=== PATIENT | female | born 1940 | race Caucasian/White ===

== ENCOUNTER 2017-04-11 05:53 | Day surgery (SDC) | payer OTHER ==
[~2017-04-11] VITALS: Ht 152.4 cm; Wt 68.0 kg
[2017-04-11] VITALS (12 sets, daily range): BP systolic 112–144; BP diastolic 55–62; PULSE 61–83; RESP 18–20; TEMP 97.5–98.2; O2SAT 95–100
[~2017-04-11 05:53] MED LIST: FLUTICASONE; GLUCTAB OR; GLYB1TAB51 PO; LATA0.00 OP; LEVO125T3 PO; LOSARTAN/HCTZ; METO10TA PO; PIOG15 PO; SIMV40TA OR
[2017-04-11] MEDS ORDERED: IODIXANOL 320 MG/ML 50 ML VIAL (for Cath Lab) OTHER ONE (05:54)
[2017-04-11] MEDS ORDERED: PROPOFOL 200 MG/20 ML AMP OTHER ONE (05:54)
[2017-04-11] MEDS ORDERED: CHLORHEXIDINE GLUCONATE 2 % 1 PACK (2 CLOTHS) TOPICAL SCH (06:15)
[2017-04-11] MEDS ORDERED: MUPIROCIN 2% OINT 1 APPLIC/GM SYR NASAL SCH (06:15)
[2017-04-11] MEDS ORDERED: NO Heparin, Lovenox, Coumadin at least 12 hours prior to procedure. PRN (06:15)
[2017-04-11] MEDS ORDERED: Hold AM Insulin & AM Hypoglycemic medications in diabetic patients PRN (06:15)
[2017-04-11] MEDS ORDERED: ceFAZolin 2 GM PREMIX 50 ML IV SCH (06:15)
[2017-04-11] MEDS ORDERED: POVIDONE IODINE 5% (ANTISEPSIS KIT) 4 APPLICATIONS EACH NARE SCH (06:15)
[2017-04-11] MEDS: NS 1000 ML IV SCH (06:15)
[2017-04-11] MEDS ORDERED: NOVOLOGP2 SQ (06:20)
[2017-04-11] MEDS ORDERED: FLUT50SP EACH NARE (06:20)
[2017-04-11] MEDS ORDERED: LATA0.002 EACH EYE (06:20)
[2017-04-11] MEDS ORDERED: ECASA81 PO (06:20)
[2017-04-11] MEDS ORDERED: SODI325T PO (06:20)
[2017-04-11] MEDS ORDERED: CARV6.252 PO (06:20)
[2017-04-11] MEDS ORDERED: ALLO100T PO (06:20)
[2017-04-11] MEDS ORDERED: LEVO125T4 PO (06:20)
[2017-04-11] MEDS ORDERED: FURO40TA PO (06:20)
[2017-04-11] MEDS ORDERED: SIMV40TA PO (06:20)
[2017-04-11] MEDS ORDERED: LANTINJ SQ (06:20)
[2017-04-11] MEDS ORDERED: METOPROLOL TARTRATE 25 MG TAB PO PRN (06:30)
[2017-04-11] MEDS ORDERED: SODIUM CHLORID 0.9% 500 ML IV PRN (06:30)
[2017-04-11] MEDS ORDERED: VANCOMYCIN 1000 MG/NS 250 ML IV SCH ×2 (06:30)
[2017-04-11] MEDS ORDERED: INSULIN HUMAN REGULAR 1,000 UNITS/10 ML VIAL SQ PRN (06:30)
[2017-04-11] MEDS ORDERED: LACTATED RINGER'S 1000 ML IV PRN (06:30)
[2017-04-11] MEDS ORDERED: CHLORHEXIDINE GLUCONATE 2 % 1 PACK (2 CLOTHS) TOPICAL PRN (06:30)
[2017-04-11] MEDS ORDERED: POVIDONE IODINE 5% (ANTISEPSIS KIT) 4 APPLICATIONS EACH NARE PRN (06:30)
[2017-04-11 06:51] LABS: AUTOMATED NEUTROPHIL # 4.8 TH/MM3 (1.8-7.7); BASOPHIL % 0.4 % (0.0-2.0); EOSINOPHIL # 0.2 TH/MM3 (0-0.4); EOSINOPHIL % 1.9 % (0.0-4.0); HEMATOCRIT 36.5 % (35.0-46.0); HEMOGLOBIN 12.5 GM/DL (11.6-15.3); LYMPH % 37.5 % (9.0-44.0); LYMPHOCYTE # 3.4 TH/MM3 (1.0-4.8); MEAN CELL VOLUME 85.8 FL (80.0-100.0); MEAN CORPUSCULAR HEMOGLOBIN 29.4 PG (27.0-34.0); MEAN CORPUSCULAR HGB CONC 34.2 % (32.0-36.0); MEAN PLATELET VOLUME 8.7 FL (7.0-11.0); MONO % 7.6 % (0.0-8.0); MONOCYTE # 0.7 TH/MM3 (0-0.9); NEUT % 52.6 % (16.0-70.0); PLATELET COUNT 268 TH/MM3 (150-450); RED BLOOD COUNT 4.25 MIL/MM3 (4.00-5.30); RED CELL DISTRIBUTION WIDTH 14.6 % (11.6-17.2); WHITE BLOOD COUNT 9.1 TH/MM3 (4.0-11.0)
[2017-04-11 07:01] LABS: PROTHROMBIN TIME - PATIENT 10.3 SEC (9.8-11.6)
[2017-04-11] MEDS ORDERED: ISOPROTERENOL HCL 1 MG/5 ML AMP ONE (07:19)
[2017-04-11] MEDS ORDERED: SODIUM CHLOR 0.9% 250 ML INJ 0 ML ONE (07:19)
[2017-04-11] MEDS ORDERED: PROPOFOL 200 MG/20 ML AMP ONE ×2 (07:19→09:51)
[2017-04-11] MEDS ORDERED: MIDAZOLAM HCL 2 MG/2 ML VIAL ONE (07:19)
[2017-04-11 07:22] LABS: BICARBONATE 22.3 MEQ/L (21.0-32.0); CALCIUM 9.3 MG/DL (8.5-10.1); CREATININE 1.18 MG/DL (0.50-1.00)
[2017-04-11] MEDS ORDERED: LIDOCAINE HCL 2% 50 ML VIAL ONE (08:04)
[2017-04-11] MEDS ORDERED: VANCOMYCIN 500 MG VIAL ONE (08:04)
[2017-04-11] MEDS ORDERED: HEPARIN-NS/PF INJ 1,000 ML ONE (08:04)
--- NOTE | 2017-04-11 09:26 | CATHPROC ---
[facility] HIS Report Study Information Study Number Admission Scheduled Start Study Start [id number] Apr 11 2017 5:53AM 04/11/2017 Apr 11 2017 7:27AM [place] [facility] Cardiac Pacer/ICD Admit Source Facility Department Other [facility] - [facility] Physician and Clinical Staff Initial Lauren Morales Car Rental Sales Assistant Vanessa Lee,MALLORY Car Rental Sales Assistant Freedom Licona,RT(R) Car Rental Sales Assistant Lucy Foster,BRAZER CRAWLER TORCH Other Anesthesia, PAYROLL SERVICES ANALYST Recorder Vanessa Lee,MALLORY Recorder Cherry White,RT(R) TECH2 Scrub Lucy Foster,BRAZER CRAWLER TORCH Scrub Freedom Licona,RT(R) Equipment Time Engineering Teacher Description Size Mfg Part Number Used/Scraped [id number] 07:30 MEDLINE INDUSTRIES PACK, CCL CUSTOM * Used *[id number] 07:30 Tran[employer] PACER RUBIO, LIMB * 2530 *[id number] Used [id number] 07:30 [facility] BLANKET,WARM AIR CCL * Used *[id number] 07:32 [employer] MEDICAL CATHETER, JSN, QUAD FR 5 Used *[id number] 07:32 [employer] MEDICAL CATHETER, JSN, QUAD FR 5 Used *[id number] 07:32 [employer] MEDICAL CATHETER, JSN, QUAD FR 5 Used *[id number] 07:32 [employer] MEDICAL CATHETER, JSN, QUAD FR 5 Used *[id number] 09:10 [employer] MEDICAL CATHETER, JSN, QUAD FR 5 Used *[id number] 110039 07:32 [employer] MEDICAL SHEATH, EPS, FR5 FAST CATH FR 5 Used *[id number] [id number] 07:32 [employer] MED[employer] SHEATH, EPS, FR5 FAST CATH FR 5 Used *[id number] 767333 07:32 [employer] MED[employer] SHEATH, EPS, FR5 FAST CATH FR 5 Used *[id number] 951549 07:32 [employer] MED[employer] SHEATH, EPS, FR6 FAST CATH FR 6 Used *[id number] History: Allergies Allergy Reaction No Known Allergies atorvastatin muscle aches History: Risk Factors Hypertension Dyslipidemia Yes Yes Cerebrovascular Diabetes Diabetes Therapy Disease Labs Hgb (g/dl) Hct (%) RBC (MIL/MM3) WBC (l/cumm) Platelets (thousands) 11.60-17.00 35.00-51.00 4.00-5.90 4.00-11.00 150.00-450.00 12.0 36 4.2 9.1 268 Glucose (mg/dl) BUN (mg/dl) Creatinine (mg/dl) BUN:Creatinine (1:x) 74.00-106.00 7.00-18.00 0.50-1.30 10.00-20.00 249 73 1.2 60.8 Na (meq/l) K (meq/l) 136.00-145.00 3.50-5.10 140 3.8 INR (PTT:PT) 0.90-1.10 1 Medication Medication Total Dose (Bolus/Oral) Medication Total Dosage/Unit 1% XYLOCAINE 20 mL Medications (Bolus/Oral) Medication Time Given Dosage/Unit Administered By Reason 1% XYLOCAINE 04/11/2017 9:00:58 AM 20 mL Lauren Mcdermott 20 mL 1% XYLOCAINE given in lab by Lauren Mcdermott in Right Groin via Subcutaneous. Medication (Drip) Medication Time Given Dosage/Unit Concentration/Unit Diluent (ml) Solution ANCEF 04/11/2017 8:55:20 AM 2 g 2 g ANCEF given in lab by Anesthesia, PAYROLL SERVICES ANALYST via Peripheral IV. Ordered by Lauren Mcdermott. Reason: As pe r physicians verbal order. VANCOMYCIN DRIP 04/11/2017 8:55:45 AM 1 g 1 g VANCOMYCIN DRIP given in lab by Anesthesia, PAYROLL SERVICES ANALYST via Peripheral IV. Ordered by Lauren Mcdermott. Pine son: As per physicians verbal order. Initial Case Assessment Cardiovascular HR Rhythm NIBP Chest Pain 67 sr 189/72 0 Edema Present Skin color Skin None Normal Warm Dry Circulatory - Right Pulses Dorsalis Pedis 1 Scale (0,1,2,3,4,d) Circulatory - Left Pulses Dorsalis Pedis 1 Scale (0,1,2,3,4,d) Neurological State Oriented to time-place- Alert Moves all extremities person Respiration - General Respiration Rate SpO2 (%) (B/min) 18 99 Chronological Log Time Study Chronological Log 7:59:16 Patient arrived via Bed. 7:59:18 Patient Name, D.O.B, / Armband Verified By R.N. 7:59:19 Consent signed by the physician and the patient and verified by the [facility] staff. 7:59:21 Pre-op and post- op instructions given; patient acknowledges understanding of instructions. 7:59:24 Verbal Stimulation=2 Physical Stimulation=2 Airway=2 Respiration=2 TOTAL=8. (0=absent, 1=li mited, 2=present) 7:59:45 Verbal Stimulation=2 Physical Stimulation=2 Airway=2 Respiration=2 TOTAL=8. (0=absent, 1=li mited, 2=present) 7:59:50 Anesthesia at bedside. Assumes care of patient. see records for all meds and vitals during procedure 7:59:58 Presedation assessment performed by [facility]er RN. 8:12:27 Patient has been NPO for More than 6Hrs. 8:12:28 Skin Breakdown- none per patient 8:12:39 Patient Warmer Placed on the Table. 8:12:40 Disposable Defibrillator Pads Placed On Patient. 8:12:41 Araceli Prominences Protected 8:12:51 A # 20 IV was noted in the Antecubital (left). Grade = 0 8:12:57 A # 20 IV was noted in the Antecubital (right). Grade = 0 8:13:01 History and physical on the chart or being dictated. Assessment: Initial Case, HR=67 BPM, Rhythm=sr, FWIW=593/72 mmhg, Chest Pain=0, Edema=None, [place] r=Normal, Skin = Warm, Dry Right Pulses: Jacob Ped=1 8:13:02 Left Pulses: Jacob Ped=1 Neurological: State=Alert, Ox3, SCRUGGS Respiration: Resp=18 B/min, SpO2=99 % 8:13:39 Table restraints applied according to hospital policy 8:13:46 Bilateral groins prepped with 2% chlorhexidine, and draped after a 3 minute waiting time. 8:28:53 Reference ECG taken 2 g ANCEF given in lab by Anesthesia, PAYROLL SERVICES ANALYST via Peripheral IV. Ordered by Lauren Mcdermott. Reason: As per physicians 8:55:20 verbal order. 1 g VANCOMYCIN DRIP given in lab by Anesthesia, PAYROLL SERVICES ANALYST via Peripheral IV. Ordered by Lauren Mcdermott . Reason: As per 8:55:45 physicians verbal order. 8:57:45 MD arrived. Time Out. Correct patient, procedure, procedure equipment, site and side verified with physician present. Time 9:00:00 concurred by MD, individual staff and PAYROLL SERVICES ANALYST. Time Out #2 - Consents verified, patient in correct position, all results are labled and display ed, safety precautions 9:00:22 taken, antibiotics administered. Time out concurred by MD, individual staff and PAYROLL SERVICES ANALYST in procedur e 9:00:55 Case Start 9:00:58 20 mL 1% XYLOCAINE given in lab by Lauren Mcdermott in Right Groin via Subcutaneous. 9:02:05 Vascular access was obtained in the Fem Vein (right). 9:02:09 Vascular access was obtained in the Fem Vein (right). 9:02:12 Vascular access was obtained in the Fem Vein (right). 9:02:14 Vascular access was obtained in the Fem Vein (right). 9:02:48 A SHEATH, EPS, FR5 FAST CATH FR 5 was advanced into the Fem Vein (right) using the Modified Seldinger technique. 9:03:26 A SHEATH, EPS, FR5 FAST CATH FR 5 was advanced into the Fem Vein (right) using the Modified Seldinger technique. 9:03:29 A SHEATH, EPS, FR5 FAST CATH FR 5 was advanced into the Fem Vein (right) using the Modified Seldinger technique. 9:03:31 A SHEATH, EPS, FR6 FAST CATH FR 6 was advanced into the Fem Vein (right) using the Modified Seldinger technique. A CATHETER, JSN, QUAD FR 5 was advanced vis Fem Vein (right) and placed in the CS. Placement was visually 9:04:58 confirmed under fluoroscopy. A CATHETER, JSN, QUAD FR 5 was advanced vis Fem Vein (right) and placed in the HIS. Placement wa s visually 9:05:04 confirmed under fluoroscopy. A 2ND CATHETER, JSN, QUAD FR 5 was advanced vis Fem Vein (right) and placed in the HIS. Placemen t was visually 9:05:22 confirmed under fluoroscopy. 1ST ONE REMOVED. A CATHETER, JSN, QUAD FR 5 was advanced vis Fem Vein (right) and placed in the RVA. Placement wa s visually 9:05:34 confirmed under fluoroscopy. A CATHETER, JSN, QUAD FR 5 was advanced vis Fem Vein (right) and placed in the HRA. Placement wa s visually 9:10:10 confirmed under fluoroscopy. 9:11:14 EPS IN PROGRESS. 9:24:29 EPS COMPLETE. 9:24:48 ALL Catheter(s), EXCEPT CS, removed without difficulty. 9:25:08 Sheath(s) left in place, SECURED, 0.9NS KVO CONNECTED AND will be removed in Holding Area 9:25:36 Case End 9:25:57 NOTE: This patient is undergoing an additional procedure while still in the Cardiac [facility] . End Study - Contrast Media Used In Study Contrast Total Opened (mL) Total Used (mL) Total Wasted (mL) Unspecified 0 0 0 End Study - Maximum Contrast Load Max Contrast Load (mL) 290.9 End Study - Radiation Exposure Fluoro Time (minutes) 3.7 End Study - Patient Disposition Complications Transferred To Interventional Outcome No Col[facility]er Holding successful
[2017-04-11] MEDS ORDERED: PHENYLEPHRINE HCL 10 MG/ML VIAL ONE (09:42)
[2017-04-11] MEDS ORDERED: LORazepam 2 MG/ML VIAL IV PUSH PRN (11:00)
[2017-04-11] MEDS ORDERED: SODIUM CHLOR 0.9% 250 ML INJ 250 ML IV PRN (11:00)
[2017-04-11] MEDS ORDERED: ATROPINE SULFATE 1 MG/ML VIAL IV PUSH PRN (11:00)
[2017-04-11] MEDS ORDERED: BACITRACIN OINT 0.9 GM PKT TOP ONE (11:00)
[2017-04-11] MEDS ORDERED: LIDOCAINE HCL 1% 50 ML VIAL INFIL PRN (11:00)
[2017-04-11] MEDS ORDERED: SODIUM CHLORIDE 0.9% FLUSH 10 ML FLUSH IV FLUSH PRN (11:00)
[2017-04-11] MEDS ORDERED: ONDANSETRON HCL 4 MG/2 ML VIAL IV PUSH PRN (11:00)
--- NOTE | 2017-04-11 11:02 | CATHPROC ---
[facility] HIS Report Study Information Study Number Admission Scheduled Start Study Start [id number] Apr 11 2017 5:53AM 04/11/2017 Apr 11 2017 9:27AM [place] Service Electrophysiology Study Admit Source Facility Department Other [facility] - Sharepoint Application Developer Physician and Clinical Staff Initial Lauren Morales Type Inspector Lucy Foster RCIS Other Anesthesia, WEFT STRAIGHTENER Recorder Vanessa Lee,RN Scrub Freedom Licona,RT(R) Procedures Performed Procedure Location (Site) Vessel Name Lead Insertion Venogram Coronary Sinus Other Wire insertion Fem Art (right) Femoral Art Wire insertion Subclav. Vein (Lft Subclavian Vein Equipment Time Medical Record Technician Description Size Mfg Part Number Used/Scraped [id number] 09:35 [employer] WIRE, ASAHI PROWATER 180CM 180CM Used *[id number] [employer]/ EP 10:50 DEFIBRILLATOR, X4 REACH LIFT TRUCK DRIVER-D DDDR [id number] Used PACER [employer]/ EP 10:17 LEAD, ENDOTAK RELIANCE SG 0293 Used PACER [employer]/ EP 10:22 LEAD, INGEVITY MRI 52CM 52CM [id number] Used PACER DERMABOND, ADHESIVE SKIN [id number] 09:33 CORDIS/PACER * Used GLUE MINI *[id number] 09:33 MEDLINE INDUSTRIES SUTURE, STRIP PLUS 1/2" * Used *[id number] 09:33 MEDLINE PACER RUBIO, LIMB * 2530 *[id number] Used [id number] 09:33 MEDLINE PACER PACK, PACER CUSTOM * Used *[id number] 09:34 [employer] PACER SAFE SHEATH, FR7, 13CM FR 7 [id number] Used 09:34 [employer] AG PACER SAFE SHEATH, FR9, 13CM FR 9 [id number] Used 09:34 [employer] AG PACER SAFE SHEATH, FR9, 13CM FR 9 [id number] Used 09:48 Needle Sponge Count 2 22 Used 09:48 Needle Sponge Count 20 200 Used 09:48 Needle Sponge Count 5 5 Used 10:33 [employer]COMED OMNIPAQUE, 300 MG, 50ML 50ML [id number] Used SUTURE, 0 ETHIBOND [CT1] (CX21D), 8pk SUTURE, 2-0 VICRYL [CT1] (WXT455D) SUTURE, 2-0 VICRYL [CT1] (WWE621J) [id number] 09:33 [employer] BLANKET,WARM AIR CCL * Used *[id number] 10:29 [facility] [employer] MED[employer] LIVEWIRE, QUAD, MED SWEEP FR 6 Used *[id number] [facility] PAD, ELECTROSURGICAL 09:33 * [id number] *[id number] Used SURGICAL GROUNDING ORANGE LEAD, ATTAIN PERFORMA 10:34 VITATRON MEDTRONIC 88CM 4398-88CM Used STRAIGHT, 88CM [id number] 09:33 [employer] GUS. / * Used *03471 Equipment Model, Serial, Lot Number and Expiration Data Description Model Number Serial Number Lot Number Expiration Date DEFIBRILLATOR, X4 REACH LIFT TRUCK DRIVER-D [id number] 08-15-2018 LEAD, ATTAIN PERFORMA 4398-88 [id number] 02-27-2019 STRAIGHT, 88CM LEAD, ENDOTAK RELIANCE SG 0293 64 [id number] 02-15-2019 LEAD, INGEVITY MRI 52CM 7741 [id number] 02-03-2019 LIVEWIRE, QUAD, MED SWEEP [id number] 07-30-2019 History: Allergies Allergy Reaction No Known Allergies atorvastatin muscle aches Medication Medication Total Dose (Bolus/Oral) Medication Total Dosage/Unit 2% XYLOCAINE 50 mL Medications (Bolus/Oral) Medication Time Given Dosage/Unit Administered By Reason 2% XYLOCAINE 04/11/2017 10:08:46 AM 50 mL Lauren Mcdermott 50 mL 2% XYLOCAINE given in lab by Lauren Mcdermott in Left upper chest via Subcutaneous. Final Case Assessment Cardiovascular HR Rhythm NIBP Chest Pain 65 sr 135/60 0 Edema Present Skin color Skin None Normal Warm Dry Circulatory - Right Pulses Dorsalis Pedis Radial 1 1 Scale (0,1,2,3,4,d) Circulatory - Left Pulses Dorsalis Pedis Radial 1 1 Scale (0,1,2,3,4,d) Circulatory - Lower Extremities Color Lower Right Color Lower Left Normal Normal Neurological State Oriented to time-place- Lethargic Moves all extremities person Respiration - General Respiration Rate SpO2 (%) (B/min) 16 97 Chronological Log Time Study Chronological Log 9:25:39 NOTE: This patient is undergoing an additional procedure while still in the Cardiac Sharepoint Application Developer . 9:25:46 Initial procedure has been completed. Beginning additional procedure. 9:27:54 Anesthesia remains at bedside. Assumes care of patient. 9:28:08 2% CHLORHEXIDINE GLUCONATE WASH AND NASAL SWIPE DONE PRIOR TO PROCEDURE. 9:28:11 Bovie ground pad applied to: right thigh 9:28:28 Upper Chest Prepped Times Two. First Sponge And Instrument Count Done by Freedom Licona RT(R). 9:40:08 Hypo's: 5, Sponges: 20, Bovie/scratch: 2 Sutures: 10, Blades: 1, Instruments: 26, Syveck Patches: 0 Verified w DC. 9:59:10 Reference ECG taken Time Out. Correct patient, procedure, procedure equipment, site and side verified with physicia n present. Time 10:08:00 concurred by MD, individual staff and WEFT STRAIGHTENER. Time Out #2 - Consents verified, patient in correct position, all results are labled and displa yed, safety precautions 10:08:21 taken, antibiotics administered. Time out concurred by MD, individual staff and WEFT STRAIGHTENER in procedu re 10:08:44 Case Start 10:08:46 50 mL 2% XYLOCAINE given in lab by Lauren Mcdermott in Left upper chest via Subcutaneous. 10:13:00 Vascular access was obtained in the Subclav. Vein (Lft. 10:13:48 Vascular access was obtained in the Subclav. Vein (Rt). 10:14:40 Vascular access was obtained in the Subclav. Vein (Lft. 10:14:43 Wire inserted 10:14:44 Wire inserted 10:14:45 Wire inserted 10:14:47 Surgical Incision Made. 10:14:51 A pocket was created at the L Upper Chest. 10:16:16 A SAFE SHEATH, FR7, 13CM FR 7 was advanced into the Subclav. Vein (Lft using the Modified S eldinger technique. 10:16:26 A SAFE SHEATH, FR9, 13CM FR 9 was advanced into the Subclav. Vein (Lft using the Modified S eldinger technique. 10:16:31 A SAFE SHEATH, FR9, 13CM FR 9 was advanced into the Subclav. Vein (Lft using the Modified S eldinger technique. 10:16:44 A LEAD, ENDOTAK RELIANCE SG was inserted and positioned in the RV. 10:20:10 Lead placement verified under fluoroscopy 10:20:12 The RV lead impedance and threshold being tested. 10:23:19 The RV lead was sutured to the fascia. 10:24:38 A LEAD, INGEVITY MRI 52CM 52CM was inserted and positioned in the RA. 10:24:50 Lead placement verified under fluoroscopy 10:25:28 The Atrial lead impedance and threshold is being tested. 10:27:14 The Atrial lead was sutured to the fascia. 10:28:04 Medtronic CS system and live wire inserted. A LIVEWIRE, QUAD, MED SWEEP FR 6 was advanced vis Subclav. Vein (Lft and placed in the CS. Plac ement was 10:28:13 visually confirmed under fluoroscopy. 10:32:10 The Coronary Sinus was manually injected with 10 cc's of contrast. OMNIPAQUE, 300 MG, 50ML 50ML used. 10:34:00 A WIRE, [employer] PROWATER 180CM 180CM was inserted via Subclav. Vein (Lft. 10:34:09 A LEAD, ATTAIN PERFORMA STRAIGHT, 88CM 88CM was inserted and positioned in the CS/LV. 10:35:01 A wire was removed. 10:36:03 The CS/LV lead impedance and threshold is being tested. 10:38:29 The CS/LV lead was sutured to the fascia. A DEFIBRILLATOR, X4 REACH LIFT TRUCK DRIVER-D DDDR was connected and placed in the pocket. [facility] x4 buildings painter- d mOD# [id number], 10:39:28 [id number], EX: 08/15/18 10:42:29 Pocket flushed with antibiotic solution Second Sponge And Instrument Count Done by Freedom Licona RT(R). 10:45:28 Hypo's: 5, Sponges: 20, Bovie/scratch: 2 Sutures: 10, Blades: 1, Instruments: 26, Syveck Patches: 0 Verified w DC. 10:51:22 The pocket was closed. 10:51:28 Implant Procedure was performed. 10:51:37 A Bivent ICD Implant . (Dual) 10:52:28 DOCU called. Spoke to Shawn 10:52:40 Bedside Report will be given. 10:54:09 No case complications noted. 10:54:10 Cine recording checked. 10:54:11 Steri-strips and a sterile dressing applied to site. 10:54:13 Defibrillator and ground pads removed. Skin intact. 10:54:20 Case End 10:59:52 CS Catheter(s) removed without difficulty 11:00:03 Sheath(s) left in place, secured, 0.9ns kvo connected and will be removed in Holding Area 11:00:36 Sterile dressing applied to right groin site 11:00:45 Implantable Device card placed in patient's chart. Assessment: Final Case, HR=65 BPM, Rhythm=sr, CMIU=070/60 mmhg, Chest Pain=0, Edema=None, [place] r=Normal, Skin = Warm, Dry Right Pulses: Jacob Ped=1, Radial=1 Left Pulses: Jacob Ped=1, Radial=1 11:00:59 Lower Right Extremities: Color=Normal Lower Left Extremities: Color=Normal Neurological: State=Lethargic, Ox3, SCRUGGS Respiration: Resp=16 B/min, SpO2=97 % 11:10:39 A sling was placed on the affected arm. 11:14:57 Patient moved to stretcher End Study - Contrast Media Used In Study Contrast Total Opened (mL) Total Used (mL) Total Wasted (mL) Omnipaque 50 10 40 End Study - Radiation Exposure Fluoro Time (minutes) 5.5 End Study - Patient Disposition Complications Transferred To Interventional Outcome No Telemetry Bed successful
--- NOTE | 2017-04-11 11:17 | PD.CARD ---
BIV/ICD Implantation PROCEDURE DATE: Apr 11, 2017 NYHA Classification: Class III (Moderate) Prevention: Primary BIV/ICD IMPLANT PROCEDURE Biventricular pacer defibrillator implantation. INDICATION FOR PROCEDURE Ms. Grover is a 76-year-old female with congestive heart failure, cardiomyopathy, QRS 160ms, EF 30%, defib vest, for electrophysiology study and biventricular pacer defibrillator implantation. Post electrophysiology study the patient was kept on the table for device implantation. The risks, the nature and the benefit of the procedure were clearly stated to her. The risks include pneumothorax, cardiac perforation, stroke and even . He understood and agreed to proceed. PROCEDURE As written informed consent was obtained prior to electrophysiology study, the patient was kept on the table where he was prepped and draped in the usual sterile fashion. Conscious sedation was initiated and maintained throughout the procedure by the anesthesiologist. Once sedation was verified, the left infraclavicular area was anesthetized with 2% Xylocaine. Using modified Seldinger technique, the left subclavian vein was cannulated on three occasions and three guidewire were advanced. Then, using an 11 blade scalpel, a 3 cm incision was made over the existing generator. The incision was taken down to the fascial layer using Bovie cautery and blunt dissection. Into the inferomedial direction, a device pocket was dissected. Then the wires were dissected into pocket. A 2-0 Vicryl suture was placed around the wires to prevent back-bleeding. At this point, over the lateral wire, a 9-British dilator and introducer were advanced. As the dilator and wire were removed, an active fixation right ventricular pacing sensing defibrillatory lead was advanced. After adequate pacing and sensing thresholds were obtained, the lead was secured in the pocket using # 2 Ethibond suture. Then, over the lateral wire, a 7-British dilator and introducer was advanced. As the dilator and wire were removed, an active fixation right atrial pacing and sensing lead was advanced. The patient was in atrial fibrillation and thresholds could not be obtained, but there was adequate impedance and sensing. Then, over the remaining wire, a 9-British dilator and introducer were advanced. As the dilator and wire were removed, a CS cannulation sheath was advanced. Through the sheath a quadripolar steerable catheter was advanced. After multiple manipulations the coronary sinus was cannulated, and CS venography showed an adequate lateral branch. Using a Prowater wire the lateral branch was cannulated and the lead was advanced over the wire. After adequate pacing and sensing thresholds were obtained, the peel-away introducer was removed and the cutter introducer was removed, and the lead was secured in the pocket using # 2 Ethibond suture. At that point, the pocket was copiously irrigated with antibiotic solution. The leads were connected to the generator and placed into pocket. Because of the patient's general condition and was so unstable during the procedure, I decided not to proceed with device testing. I did proceed with wound closure. The deep fascial layer was approximated using 2-0 suture in a continuous fashion. The subcutaneous layer was approximated with 2-0 Vicryl suture in a continuous fashion. The subcuticular layer was approximated with 2-0 Vicryl suture in a continuous fashion. Dermabond adhesive was applied to the wound followed by a sterile pressure dressing. This was a very complex case. The patient was unstable during the procedure, but no complications reported. Blood loss was minimal. IMPLANTED HARDWARE The implanted biventricular pacer defibrillator is a [employer] model G158, serial number [id number]. The right atrial pacing and sensing lead is a [employer] model number 7741-52, serial number [id number]. The right ventricle pacing sensing defibrillatory is a [employer] model 0293, serial number [id number]. The left ventricular pacing sensing lead is a Medtronic model 4398-88, serial number [id number]. THRESHOLDS The right atrial pacing in a bipolar mode was 0.6V @ 0.4ms.R wave was at 4.9 millivolts and impedance 655 ohms. The right ventricle pacing threshold in the bipolar mode was 0.6 volts at 0.4 milliseconds, lead impedance 503 ohms, and shocking impedance 59 ohms. R wave @ 18.3mV. The left ventricular pacing threshold in the bipolar mode was 0.7 volts at 0.4 milliseconds, lead impedance 780 ohms. SETTINGS The device was set in a DDD 60, upper limit 120 beats per minute. LV first by 40 milliseconds. The defibrillatory portion was set for two zones. One zone for ventricular tachycardia monitoring between 170 and 250 beats per minute on the monitor ventricular tachycardia. The initial therapy consisted of one burst of ATP, one RAMP, 81%, 10 pause, 10millisecond decremental followed by 21, 31 and 41 joules defibrillatory shock. The second zone is for ventricle fibrillation above 250, the first therapy at 31 and all subsequent shocks at 41 joules defibrillatory shock. CONCLUSIONS Successful biventricular pacer defibrillator implantation, that was a complex case. COMMENT AND RECOMMENDATION The patient will be transferred to the telemetry unit. She will be observed and when stable can be discharged home. Lauren Mcdermott MD Apr 11, 2017 11:17
[2017-04-11] MEDS: oxyCODONE/ACETAMINOPHEN 5 MG/325 MG TAB PO PRN ×3 (12:03→21:40)
--- NOTE | 2017-04-11 12:34 | RADRPT ---
EXAM DATE/TIME: 04/11/2017 12:14 [place] COMPARISON: No previous studies available for comparison. INDICATIONS : Post pacemaker insertion. MEDICAL HISTORY : None. SURGICAL HISTORY : None. ENCOUNTER: Initial ACUITY: 1 day PAIN SCORE: 0/10 LOCATION: Bilateral chest FINDINGS: A single view of the chest demonstrates the lungs to be symmetrically aerated without evidence of mas s, infiltrate or effusion. There is a left subclavian bipolar pacer in good position. The cardiomedi astinal contours are unremarkable. Osseous structures are intact. CONCLUSION: Lungs are clear. Left subclavian bipolar pacer. Shlomo Rothman MD on April 11, 2017 at 12:31 Board Certified Radiologist. This report was verified electronically.
[2017-04-11] MEDS ORDERED: DEXTROSE 50% IN WATER 50 ML VIAL(D50) IV PUSH PRN (13:30)
[2017-04-11] MEDS ORDERED: GLUCAGON 1 MG/ML VIAL OTHER PRN (13:30)
--- NOTE | 2017-04-11 15:52 | EKG ---
Date Performed: 04/11/2017 Time Performed: 06:48:24 PTAGE: 76 years EKG: Sinus rhythm . Left axis deviation Left bundle branch block Possible inferior infarct - age undetermined Abnormal ECG NO PREVIOUS TRACING DOCTOR: Dennise Denny Interpretating Date/Time 04/11/2017 15:52:02
[2017-04-11] MEDS: LOW DOSE INSULIN NOVOLOG SUPPLEMENTAL SCALE SQ SCH ×2 (17:00→21:39)
[2017-04-11] MEDS: ceFAZolin 2 GM PREMIX 50 ML IV SCH (17:55)
[2017-04-11] MEDS: SODIUM CHLORIDE 0.9% FLUSH 10 ML FLUSH IV FLUSH SCH (21:00)
[2017-04-12] VITALS (12 sets, daily range): BP systolic 108–132; BP diastolic 54–62; PULSE 64–78; RESP 18; TEMP 98.1–98.2; O2SAT 95–98
[2017-04-12] MEDS: ceFAZolin 2 GM PREMIX 50 ML IV SCH ×2 (02:11→08:22)
[2017-04-12] MEDS: oxyCODONE/ACETAMINOPHEN 5 MG/325 MG TAB PO PRN ×2 (02:12→08:21)
[2017-04-12 06:09] LABS: PROTHROMBIN TIME - PATIENT 10.6 SEC (9.8-11.6)
[2017-04-12] MEDS: NS 1000 ML IV SCH (06:15)
[2017-04-12] MEDS: LOW DOSE INSULIN NOVOLOG SUPPLEMENTAL SCALE SQ SCH (08:21)
[2017-04-12] MEDS: SODIUM CHLORIDE 0.9% FLUSH 10 ML FLUSH IV FLUSH SCH (08:22)
--- NOTE | 2017-04-12 08:57 | PD.CARD.PN ---
Subjective Subjective Remarks c/o pain around device Objective Medications Current Medications Medications (Trade) Dose Ordered Sig/Nilesh Route Start Time Stop Time Status Last Admin Miscellaneous Information Hold AM Insulin & ... UNSCH PRN .XX 04/11/17 06:15 04/15/17 06:14 Miscellaneous Information NO Heparin, Loven... UNSCH PRN .XX 04/11/17 06:15 04/15/17 06:14 Sodium Chloride 1,000 ml @ 30 mls/hr Q24H IV 04/11/17 06:15 (Betadine 5% Antisepsis Kit) 2 applic [employer] EACH NARE 04/11/17 06:15 04/14/17 06:14 04/11/17 06:28 (Bactroban Nasal 2% Oint) 1 applic [employer] NASAL 04/11/17 06:15 04/14/17 06:14 (Chlorhexidine 2% Cloth) 3 pack [employer] TOPICAL 04/11/17 06:15 04/14/17 06:14 04/11/17 06:28 Lactated Ringer's 1,000 ml @ 30 mls/hr Q24H PRN IV 04/11/17 06:30 04/14/17 06:29 Sodium Chloride 500 ml @ 30 mls/hr [id number] PRN IV 04/11/17 06:30 04/14/17 06:29 (Lopressor) 25 mg [employer] PRN PO 04/11/17 06:30 04/14/17 06:29 (Betadine 5% Antisepsis Kit) 1 applic [employer] PRN EACH NARE 04/11/17 06:30 04/14/17 06:29 (Chlorhexidine 2% Cloth) 3 pack [employer] PRN TOPICAL 04/11/17 06:30 04/14/17 06:29 (NovoLIN R INJ) See Protocol Table ... [employer] PRN SQ 04/11/17 06:30 04/14/17 06:29 Vancomycin HCl 1000 mg/Sodium Chloride 250 ml @ 250 mls/hr [employer] IV 04/11/17 06:30 04/14/17 06:29 04/11/17 08:55 (Percocet 5-325 Mg) 1 tab Q4H PRN PO 04/11/17 11:00 04/12/17 08:21 (Percocet 5-325 Mg) 2 tab Q4H PRN PO 04/11/17 11:00 04/12/17 02:12 (Ativan Inj) 0.5 mg UNSCH PRN IV PUSH 04/11/17 11:00 04/12/17 10:59 (Atropine Inj) 0.5 mg UNSCH PRN IV PUSH 04/11/17 11:00 Sodium Chloride 250 ml @ 500 mls/hr ONCE PRN IV 04/11/17 11:00 04/12/17 10:59 (Zofran Inj) 4 mg Q4H PRN IV PUSH 04/11/17 11:00 (Xylocaine 1% Inj (50 ml)) 10 ml UNSCH PRN INFIL 04/11/17 11:00 04/12/17 10:59 Cefazolin Sodium/ Dextrose 50 ml @ 100 mls/hr Q8H IV 04/11/17 17:00 04/12/17 09:29 04/12/17 08:22 (NS Flush) 2 ml BID IV FLUSH 04/11/17 21:00 04/12/17 08:22 (NS Flush) 2 ml UNSCH PRN IV FLUSH 04/11/17 11:00 (D50w (Vial) Inj) 50 ml UNSCH PRN IV PUSH 04/11/17 13:30 (Glucagon Inj) 1 mg UNSCH PRN OTHER 04/11/17 13:30 (NovoLOG SUPPLEMENTAL SCALE) 1 ACHS SLIDING SCALE SQ 04/11/17 17:00 04/12/17 08:21 Vital Signs / I&O Vital Signs Date Time Temp Pulse Resp B/P (MAP) Pulse Ox O2 Delivery O2 Flow Rate FiO2 04/12/17 07:45 98.1 67 18 132/62 (85) 98 04/12/17 06:17 71 04/12/17 05:30 64 04/12/17 04:43 69 04/12/17 04:43 98.1 70 112/55 (74) 95 04/12/17 03:18 71 04/12/17 02:27 69 04/12/17 01:00 76 04/12/17 00:12 98.2 78 108/54 (72) 96 04/12/17 00:00 75 04/11/17 23:00 75 04/11/17 22:00 75 04/11/17 21:00 80 04/11/17 20:00 98.2 83 117/55 (75) 95 04/11/17 20:00 79 04/11/17 19:00 75 04/11/17 18:00 72 04/11/17 17:56 18 04/11/17 17:00 61 04/11/17 16:00 71 04/11/17 15:00 98.0 68 20 112/56 (74) 98 04/11/17 15:00 70 04/11/17 14:00 65 04/11/17 13:30 66 04/11/17 12:14 98 Room Air I/O 04/11/17 04/11/17 04/11/17 04/12/17 04/12/17 04/12/17 07:00 15:00 23:00 07:00 15:00 23:00 Intake Total 420 ml 240 ml Output Total 350 ml 350 ml Balance 70 ml -110 ml Intake Oral 420 ml 240 ml Output Urine Total 350 ml 350 ml # Voids 1 Physical Exam alert Chest clear CV [id number] no edema. CXR reviewed/OK Device check OK Laboratory Laboratory Tests Test 04/12/17 05:05 Prothrombin Time 10.6 SEC Prothromb Time International Ratio 1.0 RATIO Activated Partial Thromboplast Time 26.8 SEC Imaging Last 48 hours Impressions Chest X-Ray 04/11/17 0000 Signed Impressions: Service Date/Time: April 12:14 - CONCLUSION: Lungs are clear. Left subclavian bipolar pacer. Shlomo Rothman MD Assessment and Plan Problem List: (1) Systolic CHF ICD Codes: I50.20 - Unspecified systolic (congestive) heart failure Plan: stable (2) Cardiomyopathy ICD Codes: I42.9 - Cardiomyopathy, unspecified (3) Presence of biventricular AICD ICD Codes: Z95.810 - Presence of automatic (implantable) cardiac defibrillator Plan: Nl function. No PTX Assessment and Plan DC home. Percocet 5-325 # q4h prnpain. Keep F/U as Dr. Mcdermott has arranged Manpreet Melara MD Apr 12, 2017 08:57
--- NOTE | 2017-04-12 16:05 | EKG ---
Date Performed: 04/12/2017 Time Performed: 03:30:10 PTAGE: 76 years EKG: Ventricular pacing Pacemaker rhythm - no further analysis Abnormal ECG PREVIOUS TRACING : 04/11/2017 06.48 Since previous tracing, no significant change noted DOCTOR: Froy Amador Interpretating Date/Time 04/12/2017 16:04:29
== END 2017-04-12 10:51 | disposition home or self-care (01) ==
LOC: HDIC 05:53 → HCAT 05:53 → HCIS 13:28 → HCAT 04-12 10:51
PROVIDERS: ATTEND Internal Medicine Interventional Cardiology
DX: I11.0 Hypertensive heart disease with heart failure (principal); I50.9 Heart failure, unspecified; I42.0 Dilated cardiomyopathy; I44.7 Left bundle-branch block, unspecified; R53.83 Other fatigue; R06.00 Dyspnea, unspecified; E78.5 Hyperlipidemia, unspecified; E11.9 Type 2 diabetes mellitus without complications; Z79.4 Long term (current) use of insulin; Z87.891 Personal history of nicotine dependence; Z79.82 Long term (current) use of aspirin
CPT/HCPCS: 00530; 33225; 33249; 71045; 80048; 82948; 85025; 85610; 85730; 86850; 86900; 86901; 93005; 93620; C1730; C1777; C1882; C1898; C1900; J0690; J1644; J1815; J2250; J2370; J3010; J3370; J7050; Q9967